=== PATIENT | female | born 1965 | race Caucasian/White ===

== ENCOUNTER 2020-07-17 19:04 | Emergency (ER) | payer MEDICAID, OTHER ==
[~2020-07-17] VITALS: Ht 167.6 cm; Wt 104.0 kg
[~2020-07-17 19:04] MED LIST: CLON-371 PO; CYCL-35 PO; METO50TA16 PO; OXYC5CAP19 PO; PANT-47 PO; VENL150C2 PO
[2020-07-17 19:33] VITALS: BP 204/114
--- NOTE | 2020-07-17 19:52 | NUR ---
covid swab collected. please call pt at [phone] per pt request.
== END 2020-07-17 19:53 | disposition home or self-care (01) ==
LOC: ER 19:06
DX: J06.9 Acute upper respiratory infection, unspecified (principal); Z20.822 Contact with and (suspected) exposure to COVID-19; I10 Essential (primary) hypertension; D18.09 Hemangioma of other sites; Z79.899 Other long term (current) drug therapy
CPT/HCPCS: 87635; 99283; C9803

== ENCOUNTER 2020-07-20 16:26 | Emergency (ER) | payer MEDICAID ==
[~2020-07-20] VITALS: Ht 165.1 cm; Wt 100.0 kg
[2020-07-20] MEDS ORDERED: nitroGLYCERIN 0.4mg SUBLingual tab SL PRN (16:50)
[2020-07-20] MEDS ORDERED: hydrALAZINE 20mg/ml inj. IV ONE (16:50)
[2020-07-20] MEDS ORDERED: ondansetron/PF 4mg/2ml inj IV ONE (16:50)
[2020-07-20] MEDS ORDERED: aspirin 81mg tab.chew PO ONE (16:50)
[2020-07-20 17:33] LABS: BASOPHILS # (AUTO) 0.1 X10'3 (0-0.2); HEMOGLOBIN 14.2 g/dl (12.0-16.0); LYMPHOCYTES # (AUTO) 1.4 X10'3 (1.1-4.8); WHITE BLOOD COUNT 10.6 X10'3 (4.5-11.0)
[2020-07-20 17:35] LABS: BASOPHILS % (AUTO) 0.8 % (0-1); EOSINOPHILS % (AUTO) 0.2 % (0-6); LYMPHOCYTES % (AUTO) 13.4 % (21-51); MEAN CORPUSCULAR HEMOGLOBIN 27.8 PG (27.0-31.0); MEAN CORPUSCULAR HGB CONC 33.1 g/dL (33.0-36.5); MEAN PLATELET VOLUME 8.2 FL (7.4-10.4); MONOCYTES % (AUTO) 9.6 % (2-12); NEUTROPHILS # (AUTO) 8.1 X10'3 (1.8-7.7); PLATELET COUNT 305 X10'3 (140-440); RED BLOOD COUNT 5.12 X10'6 (4.20-5.60); RED CELL DISTRIBUTION WIDTH 17.3 % (11.5-14.5)
[2020-07-20 17:50] LABS: ALANINE AMINOTRANSFERASE 43 U/L (12-78); ALBUMIN 3.6 G/DL (3.4-5.0); ALBUMIN/GLOBULIN RATIO 0.8 (1.1-1.5); ALKALINE PHOSPHATASE 123 IU/L (46-116); ANION GAP 11 (8-16); ASPARTATE AMINO TRANSFERASE 18 U/L (10-37); BILIRUBIN,TOTAL 0.7 MG/DL (0.1-1.0); BLOOD UREA NITROGEN 8 MG/DL (7-18); BUN/CREATININE RATIO 10.3 (6.6-38.0); CALCIUM 9.5 MG/DL (8.5-10.1); CHLORIDE 103 MMOL/L (99-107); CREATININE 0.78 MG/DL (0.40-0.90); GLUCOSE 155 MG/DL (70-104); POTASSIUM 3.2 MMOL/L (3.5-5.1); SODIUM 139 MMOL/L (135-145); TOTAL CARBON DIOXIDE 25.2 MMOL/L (24-32); TOTAL PROTEIN 8.2 G/DL (6.4-8.2); eGFR 77 ML/MIN
[2020-07-20] MEDS ORDERED: potassium Cl 20 mEq SR tablet PO STA (18:28)
[2020-07-20 19:20] VITALS: BP 151/81
== END 2020-07-20 19:15 ==
LOC: ER 16:27
DX: I16.0 Hypertensive urgency (principal); R11.10 Vomiting, unspecified; R51.9 Headache, unspecified; R06.02 Shortness of breath; R42 Dizziness and giddiness; Z98.890 Other specified postprocedural states; Z88.8 Allergy status to other drugs, medicaments and biological substances; Z79.899 Other long term (current) drug therapy
CPT/HCPCS: 36415; 70450; 71045; 80053; 83735; 83880; 84484; 85025; 93005; 96374; 96375; 99285; J0360; J2405